=== PATIENT | female | born 1995 | race Caucasian/White ===

== ENCOUNTER 2017-10-22 17:22 | Emergency (ER) | payer OTHER, MEDICAID ==
[~2017-10-22] VITALS: Ht 162.6 cm; Wt 77.1 kg
[~2017-10-22 17:22] MED LIST: ACETAMINOPHEN-1 EAC1 PO; BACTRIM DS TAB1 EACH PO; BIRTH CONTROL PATCH; CEPHALEXIN 500500 M3 PO; DEPO-PROVE150 MG/1 M IM; IBUPROFEN 800800 M1 PO; ONDANSETRON HCL4 M2 PO; TRINATE TABLET1 TAB PO; ZOFRAN4 MG PO
[2017-10-22 17:47] LABS: URINE BILIRUBIN NEGATIVE (Negative); URINE BLOOD 3+ (Negative); URINE CLARITY CLEAR; URINE COLOR YELLOW; URINE GLUCOSE-RANDOM NEGATIVE (Negative); URINE KETONES NEGATIVE (Negative); URINE LEUKOCYTES-REFLEX NEGATIVE (Negative); URINE NITRITE-REFLEX NEGATIVE (Negative); URINE PROTEIN NEGATIVE (Negative); URINE SPECIFIC GRAVITY 1.025 (1.005-1.030); URINE UROBILINOGEN 0.2 E.U./dl (0.2-1.0)
[2017-10-22 17:58] LABS: ABSOLUTE BASOPHILS 0.1 thou/uL (0.0-0.2); ABSOLUTE EOSINOPHILS 0.2 thou/uL (0.0-0.7); ABSOLUTE MONOCYTES 0.6 thou/uL (0.0-1.2); ABSOLUTE NEUTROPHILS 4.5 thou/uL (1.6-8.1); BASOPHILS 0.6 %; EOSINOPHILS 2.4 %; HEMATOCRIT 38.2 % (37.0-47.0); HEMOGLOBIN 12.8 gm/dL (12.0-15.0); LYMPHOCYTES 42.6 %; MCH 25.6 pg (26.0-34.0); MCHC 33.6 g/dL (28.0-37.0); MCV 76.3 fL (80.0-100.0); MONOCYTES 5.9 %; MPV 8.3 fl. (7.2-11.1); NUCLEATED RBCS 0 /100WBC; PLATELET COUNT* 300 thou/uL (150-400); POLYS 48.5 %; RBC 5.01 mil/uL (4.20-5.00); RDW-CV 14.4 % (10.5-14.5); WBC 9.4 thou/uL (4.0-11.0)
[2017-10-22 18:10] LABS: CALCIUM 8.5 mg/dL (8.5-10.1); CREATININE 0.7 mg/dL (0.6-1.3); POTASSIUM 3.7 mmol/L (3.5-5.1)
[2017-10-22 18:14] LABS: ALBUMIN 3.6 g/dL (3.4-5.0); TOTAL BILIRUBIN 0.2 mg/dL (<0.1-1.0); TOTAL PROTEIN 7.3 g/dL (6.4-8.2)
[2017-10-22 18:15] LABS: CASTS None Seen /LPF (None Seen); CRYSTALS None Seen /LPF (None Seen); MUCUS None Seen strn/LPF (None Seen); SQUAMOUS >10 Many /LPF (0-3); URINE RBC 3-10 Few /HPF (0-2)
[2017-10-22 18:16] LABS: BACTERIA-REFLEX 1-9 Few /HPF (None Seen); URINE WBC-REFLEX 0-5 Rare /HPF (0-5)
[2017-10-22 18:44] VITALS: BP 135/72
== END 2017-10-22 18:44 | disposition home or self-care (01) ==
LOC: M.ERS 17:22
PROVIDERS: Nurse Practitioner Family
DX: N93.9 Abnormal uterine and vaginal bleeding, unspecified (principal)